=== PATIENT | male | born 1955 | race Two or more races ===

== ENCOUNTER 2023-07-03 18:58 | Emergency (ER) | payer MEDICARE, BC ==
[~2023-07-03] VITALS: Ht 175.3 cm; Wt 90.7 kg
[2023-07-03] MEDS ORDERED: ALBUTEROL FS 2.5 MG/3 ML VIAL.NEB ONE (20:05)
[2023-07-03] MEDS ORDERED: IPRATROPIUM NEB FS 0.5 MG/2.5 ML AMPUL.NEB ONE (20:05)
[2023-07-03 20:15] VITALS: O2SAT 98
[2023-07-03] MEDS ORDERED: predniSONE 20 MG TABLET ONE (20:15)
[2023-07-03] MEDS: IPRATROPIUM NEB FS 0.5 MG/2.5 ML AMPUL.NEB NEB ONE (20:15)
[2023-07-03] MEDS: ALBUTEROL FS 2.5 MG/3 ML VIAL.NEB CONTNEB ONE (20:15)
[2023-07-03] MEDS: predniSONE 20 MG TABLET PO ONE (20:19)
[2023-07-03 21:15] VITALS: O2SAT 100
[2023-07-03] MEDS ORDERED: PRED20TA PO (21:57)
[2023-07-03] MEDS ORDERED: AZIT250T13 PO (21:57)
[2023-07-03] MEDS ORDERED: AMOX-430 PO (21:57)
[2023-07-03] MEDS ORDERED: ALBU18HF2 INH (21:57)
[2023-07-03 22:20] VITALS: BP 139/71; TEMP 98.5; O2SAT 100
== END 2023-07-03 22:20 | disposition home or self-care (01) ==
LOC: ER 19:07
DX: J18.8 Other pneumonia, unspecified organism (principal); J20.9 Acute bronchitis, unspecified; J06.9 Acute upper respiratory infection, unspecified; R05.9 Cough, unspecified; R09.81 Nasal congestion; I10 Essential (primary) hypertension; E78.5 Hyperlipidemia, unspecified
CPT/HCPCS: 99285; 71045; 94644; J7512; J7030; A4223

== ENCOUNTER 2024-04-20 13:58 | Emergency (ER) | payer MEDICARE, BC ==
[~2024-04-20] VITALS: Ht 172.7 cm; Wt 83.9 kg
[~2024-04-20 13:58] MED LIST: ALBU18HF2 INH; AMOX-430 PO; AZIT250T13 PO; PRED20TA PO
[2024-04-20] MEDS ORDERED: DILTIAZEM HCL 50 MG IV ONE (14:45)
[2024-04-20 14:53] LABS: BASOPHILS # (AUTO) 0.1 K/uL (0.0-0.2); EOSINOPHILS # (AUTO) 0.2 K/uL (0.0-0.7); EOSINOPHILS % (AUTO) 1.9 % (0.0-6.0); HEMATOCRIT 53 % (39-51); HEMOGLOBIN 18.5 g/dL (13.5-17.5); LYMPHOCYTES # (AUTO) 2.3 K/uL (0.8-4.8); LYMPHOCYTES % (AUTO) 22.2 % (20.0-44.0); MEAN CORPUSCULAR HEMOGLOBIN 34 PG (26.0-33.0); MEAN CORPUSCULAR HGB CONC 35 g/dl (31.0-36.0); MEAN CORPUSCULAR VOLUME 96 fL (80-96); MONOCYTES # (AUTO) 0.7 K/uL (0.1-1.30); MONOCYTES % (AUTO) 6.9 % (2.0-12.0); PLATELET COUNT (AUTO) 185 K/uL (150-450); RED BLOOD CELL COUNT(AUTO) 5.49 MIL/uL (4.5-6.0); RED CELL DISTRIBUTION WIDTH 13.6 % (11.5-15.0); WHITE BLOOD COUNT (AUTO) 10.3 K/uL (4.3-11.0)
[2024-04-20] MEDS: DILTIAZEM HCL 25 MG IV IV ONE (14:55)
[2024-04-20] MEDS: IV NS 0.9% 1,000 ML BAG IV ONE (14:56)
[2024-04-20 15:03] LABS: CALCIUM, SERUM 8.6 mg/dL (8.5-10.1); CARBON DIOXIDE 28 mmol/L (21-32); CHLORIDE 104 mmol/L (98-107); CREATININE 1.2 mg/dL (0.6-1.3); GLUCOSE 92 mg/dL (74-106); POTASSIUM 3.9 mmol/L (3.5-5.1); SODIUM SERUM 140 mmol/L (136-145); UREA NITROGEN, BLOOD 16 mg/dL (7-18)
[2024-04-20 15:16] LABS: NT-PRO BNP 1244 pg/mL (0-125)
[2024-04-20] MEDS ORDERED: DILTIAZEM HCL 30 MG TABLET ONE ×2 (18:40→18:44)
[2024-04-20] MEDS: DILTIAZEM HCL 30 MG TABLET PO ONE (18:43)
[2024-04-20] MEDS ORDERED: DILT30TA14 PO (18:59)
[2024-04-20 19:10] VITALS: BP 145/97; TEMP 98; O2SAT 96
== END 2024-04-20 19:11 | disposition home or self-care (01) ==
LOC: ER 13:59
DX: I48.20 Chronic atrial fibrillation, unspecified (principal); E78.00 Pure hypercholesterolemia, unspecified; I11.9 Hypertensive heart disease without heart failure; J45.909 Unspecified asthma, uncomplicated; Z79.01 Long term (current) use of anticoagulants; Z79.52 Long term (current) use of systemic steroids
CPT/HCPCS: 99291; 96374; 96361; 93005; 71045; 85025; 80048; 36415; 84484 ×2; 83880; J3490; J7030